=== PATIENT | female | born 1995 | race Caucasian/White ===

== ENCOUNTER 2024-05-16 01:54 | Emergency (ER) | payer MEDICAID ==
[~2024-05-16] VITALS: Ht 160 cm; Wt 67.0 kg
[2024-05-16 01:56] VITALS: O2SAT 98
[2024-05-16] MEDS: LORAZEPAM 2MG/ML INJ IV ONE (02:50)
[2024-05-16] MEDS: SODIUM CHLORIDE 0.9% 1,000 ML IV ONE (02:51)
[2024-05-16 03:16] LABS: BASOPHILS % 0.6 % (0.0-2.0); EOSINOPHILS % 0.7 % (0.0-5.0); HEMATOCRIT. 39.2 % (36.0-48.0); LYMPHOCYTES % 21.8 % (20.0-50.0); MEAN CORPUSCULAR HGB CONC 33.2 g/dL (31.0-37.0); MEAN CORPUSCULAR VOLUME 93.2 fL (81.0-99.0); MEAN PLATELET VOLUME 10.3 fl (7.4-10.4); MONOCYTES % 4.7 % (2.0-8.0); NEUTROPHILS % 72.2 % (40.0-76.0); PLATELET 275 x1000/uL (130-400); RED BLOOD CELL COUNT 4.21 mill/uL (4.2-5.4); RED CELL DISTRIBUTION WIDTH 12.4 % (11.6-14.6)
[2024-05-16 03:24] LABS: CHLORIDE 109 mEq/L (98-107); SODIUM 145 mEq/L (136-145)
[2024-05-16 03:25] LABS: CALCIUM 9.7 mg/dL (8.7-10.4); CARBON DIOXIDE 25 mEq/L (21-32)
[2024-05-16 03:29] LABS: LACTIC ACID 2.7 mmol/L (0.4-2.0)
[2024-05-16 03:30] LABS: CREATININE 0.7 mg/dL (0.6-1.0); GLUCOSE 116 mg/dL (70-105); UREA NITROGEN BLOOD 13 mg/dL (9-23)
[2024-05-16 03:31] LABS: ETHANOL BLOOD 232 mg/dL (<10)
[2024-05-16 04:36] LABS: HCG SCREEN NEGATIVE
[2024-05-16 06:25] VITALS: TEMP 37.00296
[2024-05-16] MEDS ORDERED: LORA-250 MT (06:45)
[2024-05-16 11:00] VITALS: BP 119/72; PULSE 90; RESP 18; O2SAT 100
== END 2024-05-16 11:15 | disposition home or self-care (01) ==
LOC: ER 01:54
DX: R41.82 Altered mental status, unspecified (principal)
CPT/HCPCS: 80048; 80320; 84703; 83605; 85025; 36415; 96361; 96374; 99285; J2060; J7030; G0480